=== PATIENT | male | born 1975 | race Caucasian/White ===

== ENCOUNTER 2017-08-13 02:41 | Emergency (ER) | payer BC ==
[~2017-08-13] VITALS: Ht 188 cm; Wt 111.8 kg
[2017-08-13] MEDS ORDERED: SULF1TAB49 PO (03:30)
[2017-08-13] MEDS ORDERED: sulfamethoxazole/trimethoprim DS (800/160mg) tablet PO ONE (03:30)
[2017-08-13 03:57] VITALS: BP 135/105
== END 2017-08-13 04:00 | disposition home or self-care (01) ==
LOC: ER 02:42
DX: L02.11 Cutaneous abscess of neck (principal); L03.221 Cellulitis of neck; I10 Essential (primary) hypertension; E11.9 Type 2 diabetes mellitus without complications
CPT/HCPCS: 99283

== ENCOUNTER 2019-05-14 05:19 | Emergency (ER) | payer BC ==
[~2019-05-14] VITALS: Ht 188 cm; Wt 109.0 kg
[2019-05-14] MEDS ORDERED: metoclopramide 5 mg/ml inj IV ONE (05:30)
[2019-05-14] MEDS ORDERED: LORazepam 2 mg/ml vial IV ONE (05:30)
[2019-05-14] MEDS ORDERED: normal saline 1000ML IV soln IVB ONE ×2 (05:30)
[2019-05-14] MEDS ORDERED: diphenhydrAMINE 50 mg/ml inj IV ONE (05:30)
[2019-05-14] MEDS ORDERED: morphine 4 MG/ML inj SYRINge IV ONE ×2 (05:35→07:15)
[2019-05-14] MEDS ORDERED: glycopyrrolate 0.2mg/ml inj IV ONE (05:35)
--- NOTE | 2019-05-14 05:47 | NUR ---
DR MORRIS AT BEDSIDE PERFORMING ABD ULTRASOUND
[2019-05-14 05:53] LABS: BASOPHILS # (AUTO) 0.1 X10'3 (0-0.2); BASOPHILS % (AUTO) 1.1 % (0-1); EOSINOPHILS # (AUTO) 0.1 X10'3 (0-0.9); EOSINOPHILS % (AUTO) 1.5 % (0-6); HEMATOCRIT 42.2 % (42.0-52.0); HEMOGLOBIN 14.5 g/dl (14.0-17.9); LYMPHOCYTES # (AUTO) 2.3 X10'3 (1.1-4.8); LYMPHOCYTES % (AUTO) 30.8 % (21-51); MEAN CORPUSCULAR HEMOGLOBIN 29.3 PG (27.0-31.0); MEAN CORPUSCULAR HGB CONC 34.3 g/dL (33.0-36.5); MEAN CORPUSCULAR VOLUME 85.3 FL (78-98); MONOCYTES # (AUTO) 0.8 X10'3 (0-0.9); MONOCYTES % (AUTO) 10.4 % (2-12); NEUTROPHILS # (AUTO) 4.1 X10'3 (1.8-7.7); NEUTROPHILS % (AUTO) 56.2 % (42-75); PLATELET COUNT 255 X10'3 (140-440); RED BLOOD COUNT 4.94 X10'6 (4.70-6.10); RED CELL DISTRIBUTION WIDTH 13.3 % (11.5-14.5); WHITE BLOOD COUNT 7.3 X10'3 (4.5-11.0)
[2019-05-14] MEDS ORDERED: ONDA4TAB12 PO (05:56)
[2019-05-14] MEDS ORDERED: DICY10CA88 PO (05:56)
[2019-05-14 06:12] LABS: ALANINE AMINOTRANSFERASE 34 U/L (12-78); ALBUMIN 4.4 G/DL (3.4-5.0); ALBUMIN/GLOBULIN RATIO 1.1 (1.1-1.5); ALKALINE PHOSPHATASE 48 IU/L (46-116); ANION GAP 12 (8-16); ASPARTATE AMINO TRANSFERASE 17 U/L (10-37); BILIRUBIN,TOTAL 0.6 MG/DL (0.1-1.0); BLOOD UREA NITROGEN 15 MG/DL (7-18); BUN/CREATININE RATIO 13.8 (5.4-32.0); CALCIUM 8.7 MG/DL (8.5-10.1); CHLORIDE 104 MMOL/L (99-107); CREATININE 1.09 MG/DL (0.60-1.10); GLUCOSE 152 MG/DL (70-104); LIPASE 109 U/L (73-393); POTASSIUM 3.9 MMOL/L (3.5-5.1); SODIUM 143 MMOL/L (135-145); TOTAL CARBON DIOXIDE 27.3 MMOL/L (24-32); TOTAL PROTEIN 8.5 G/DL (6.4-8.2); eGFR 73 ML/MIN
[2019-05-14] MEDS ORDERED: pantoprazole 40 MG vial IV ONE (07:15)
[2019-05-14] MEDS ORDERED: famotidine/PF 10 mg/ml inj IV ONE (07:15)
[2019-05-14] MEDS ORDERED: HYDROcodone/acetaminophen 5mg/325mg tablet PO ONE (09:00)
[2019-05-14] MEDS ORDERED: ketorolac trometh. 30mg/ml inj. IV ONE (09:00)
[2019-05-14] MEDS ORDERED: sucralfate 1gm/10ml UD suspension PO ONE (09:00)
[2019-05-14 09:03] LABS: CLARITY,URINE CLEAR (Clear); COLOR,URINE YELLOW (Yellow); GLUCOSE, URINE NEGATIVE (Neg); KETONES,URINE NEGATIVE (Neg); LEUKOCYTE ESTERASE ,URINE NEGATIVE (Neg); NITRITES, URINE NEGATIVE (Neg); OCCULT BLOOD,URINE NEGATIVE (Neg); PH,URINE 5.5 (4.8-8.0); PROTEIN,URINE 30 mg/dl (Neg)
[2019-05-14 09:04] LABS: UA COLLECTION TYPE URINAL
[2019-05-14] MEDS ORDERED: HYDR-3965 PO (09:10)
[2019-05-14 09:11] LABS: BACTERIA,URINE NONE SEEN /HPF (Neg); HYALINE CASTS 0-3 /LPF (NEGATIVE); MUCUS STRANDS MANY /LPF (Neg); RBC,URINE NONE SEEN /HPF (0-2); SQUAMOUS EPITHELIAL CELL,UR NONE SEEN /LPF (FEW); WBC,URINE 0-4 /HPF (0-4)
[2019-05-14 09:40] VITALS: BP 124/70
== END 2019-05-14 09:42 | disposition home or self-care (01) ==
LOC: ER 05:20
DX: R10.13 Epigastric pain (principal); R10.11 Right upper quadrant pain; R11.2 Nausea with vomiting, unspecified; I10 Essential (primary) hypertension; I25.2 Old myocardial infarction; E11.9 Type 2 diabetes mellitus without complications; F10.99 Alcohol use, unspecified with unspecified alcohol-induced disorder; Z79.899 Other long term (current) drug therapy; Y90.9 Presence of alcohol in blood, level not specified
CPT/HCPCS: 36415; 71045; 74176; 80053; 81001; 83690; 85025; 93005; 96361; 96374; 96375; 96376; 99284; C9113; J1200; J1885; J2060; J2270; J2765; J3490; J7030

== ENCOUNTER 2021-04-02 10:47 | Emergency (ER) | payer BC ==
[~2021-04-02] VITALS: Ht 190.5 cm; Wt 113.0 kg
[~2021-04-02 10:47] MED LIST: ONDA4TAB12 PO
[2021-04-02] MEDS ORDERED: aspirin 81mg tab.chew PO ONE (11:20)
[2021-04-02 11:53] LABS: BASOPHILS % (AUTO) 0.5 % (0-1); EOSINOPHILS # (AUTO) 0.1 X10'3 (0-0.9); EOSINOPHILS % (AUTO) 1.3 % (0-6); HEMATOCRIT 42.4 % (42.0-52.0); HEMOGLOBIN 14.4 g/dl (14.0-17.9); LYMPHOCYTES # (AUTO) 1.3 X10'3 (1.1-4.8); LYMPHOCYTES % (AUTO) 14.8 % (21-51); MEAN CORPUSCULAR HEMOGLOBIN 28.6 PG (27.0-31.0); MEAN CORPUSCULAR HGB CONC 33.9 g/dL (33.0-36.5); MEAN CORPUSCULAR VOLUME 84.5 FL (78-98); MEAN PLATELET VOLUME 9.5 FL (7.4-10.4); MONOCYTES # (AUTO) 0.8 X10'3 (0-0.9); MONOCYTES % (AUTO) 8.7 % (2-12); NEUTROPHILS # (AUTO) 6.4 X10'3 (1.8-7.7); NEUTROPHILS % (AUTO) 74.7 % (42-75); PLATELET COUNT 235 X10'3 (140-440); RED BLOOD COUNT 5.02 X10'6 (4.70-6.10); RED CELL DISTRIBUTION WIDTH 13.5 % (11.5-14.5); WHITE BLOOD COUNT 8.6 X10'3 (4.5-11.0)
[2021-04-02 12:09] LABS: ALANINE AMINOTRANSFERASE 40 U/L (12-78); ALBUMIN/GLOBULIN RATIO 1.1 (1.1-1.5); ALKALINE PHOSPHATASE 78 IU/L (46-116); ASPARTATE AMINO TRANSFERASE 16 U/L (10-37); BILIRUBIN,TOTAL 0.8 MG/DL (0.1-1.0); BLOOD UREA NITROGEN 19 MG/DL (7-18); BUN/CREATININE RATIO 15.6 (5.4-32.0); CHLORIDE 100 MMOL/L (99-107); CREATININE 1.22 MG/DL (0.60-1.10); GLUCOSE 274 MG/DL (70-104); POTASSIUM 4.1 MMOL/L (3.5-5.1); TOTAL CARBON DIOXIDE 19.4 MMOL/L (24-32); TOTAL PROTEIN 7.5 G/DL (6.4-8.2); eGFR 64 ML/MIN
[2021-04-02] MEDS ORDERED: ondansetron/PF 4mg/2ml inj IV ONE (12:10)
[2021-04-02] MEDS ORDERED: normal saline 1000ML IV soln IVB ONE (12:10)
[2021-04-02] MEDS ORDERED: nitroGLYCERIN 0.4mg/hour patch TD ONE (12:10)
[2021-04-02] MEDS ORDERED: pantoprazole 40 MG vial IV ONE (12:10)
[2021-04-02 12:16] LABS: MAGNESIUM 1.6 MG/DL (1.5-2.4)
[2021-04-02 12:17] LABS: ANION GAP 14 (8-16); SODIUM 133 MMOL/L (135-145)
[2021-04-02] MEDS ORDERED: LISI20TA28 PO (13:13)
[2021-04-02] MEDS ORDERED: METF750T46 PO (13:13)
[2021-04-02] MEDS ORDERED: SILD100T70 PO (13:13)
[2021-04-02] MEDS ORDERED: PERFLUTREN PROTEIN-A MICROSPHR (Optison) 0.22 MG/ML 3ML VIAL IV PRN (13:50)
[2021-04-02] MEDS ORDERED: magnesium 2GM in 50ml NS 50 ML IV PRN (13:50)
[2021-04-02] MEDS ORDERED: magnesium Cl slow-release 64mg tablet PO PRN (13:50)
[2021-04-02] MEDS ORDERED: morphine 2 MG/ML inj. syringe IV PRN (13:50)
[2021-04-02] MEDS ORDERED: normal saline 1000ml 1,000 ML IV SCH (13:50)
[2021-04-02] MEDS ORDERED: ondansetron/PF 4mg/2ml inj IV PRN (13:50)
[2021-04-02] MEDS ORDERED: magnesium 4gm in 100ml NS 100 ML IV PRN (13:50)
[2021-04-02] MEDS ORDERED: potassium Cl 20 mEq SR tablet PO PRN ×2 (13:50)
[2021-04-02] MEDS ORDERED: potassium Cl 40MEQ/1/2NS 520ml 520 ML IV PRN ×2 (13:50)
[2021-04-02 19:51] VITALS: BP 117/97
[2021-04-02] MEDS ORDERED: dextrose ORAL solution 15 GM/59 ML bottle PO PRN ×6 (20:00→21:00)
[2021-04-02] MEDS ORDERED: K and/or MAG REPLACEMENT MC SCH (20:00)
[2021-04-02] MEDS ORDERED: insulin Lispro (HumaLOG) vial - multi-dose SQ SCH ×3 (20:00→21:00)
[2021-04-02] MEDS ORDERED: docusate sod 100mg capsule PO SCH (20:00)
[2021-04-02] MEDS ORDERED: dextrose 50%-water 50ml dispensing syringe IV PRN ×6 (20:00→21:00)
[2021-04-02] MEDS ORDERED: MESSAGE TO PHARMACY PO ONE ×3 (20:00→20:55)
[2021-04-02] MEDS ORDERED: heparin, porcine 5000 units/ml vial SQ SCH (20:00)
[2021-04-02] MEDS ORDERED: glucagon, human recombinant 1mg kit SUBCUT PRN ×3 (20:00→21:00)
--- NOTE | 2021-04-02 20:00 | NUR ---
pt refused colace and heparin and is stating wants to leave. md parada spoke with pt regarding risks of leaving [facility].
[2021-04-02 20:27] LABS: HEMOGLOBIN A1C 8.7 % (4.5-6.2)
[2021-04-02] MEDS ORDERED: metoprolol tartrate 1mg/ml inj IV PRN ×2 (20:45→21:05)
[2021-04-02] MEDS ORDERED: regadenoson 0.4mg/5ml syringe IV ONE ×2 (20:45)
[2021-04-02] MEDS ORDERED: nitroGLYCERIN 0.4mg SUBLingual tab SL PRN ×2 (20:45→21:00)
[2021-04-02] MEDS ORDERED: aminophylline 250mg/10ml inj. IV PRN ×2 (20:45→21:05)
--- NOTE | 2021-04-02 20:58 | NUR ---
pt decided to leave [facility]. form signed
[2021-04-02] MEDS ORDERED: insulin glargine (Lantus) pen - multi-dose SQ SCH ×2 (21:00→21:15)
[2021-04-03] MEDS ORDERED: lisinopril 20mg tablet PO SCH ×2 (08:00→08:15)
== END 2021-04-02 21:06 | disposition left against medical advice (07) ==
LOC: ER 10:47 → UNDOADMOB 13:52 → ED HOLD 13:52 → UNDODISOB 20:59 → ER 21:06
DX: I20.0 Unstable angina (principal); R11.2 Nausea with vomiting, unspecified; R07.89 Other chest pain; R19.7 Diarrhea, unspecified; I10 Essential (primary) hypertension; I25.2 Old myocardial infarction; E11.9 Type 2 diabetes mellitus without complications; Z90.49 Acquired absence of other specified parts of digestive tract; Z79.899 Other long term (current) drug therapy
CPT/HCPCS: 36415; 71045; 80053; 83036; 83735; 83880; 84484; 85025; 93005; 93306; 96361; 96374; 96375; 99285; C9113; J1815; J2405; J7030; G0378

== ENCOUNTER 2021-06-14 16:04 | Inpatient (IN) | payer BC ==
[~2021-06-14] VITALS: Ht 190.5 cm; Wt 107.3 kg
[~2021-06-14 16:04] MED LIST changes: +LISI20TA28 PO; +METF750T46 PO; -ONDA4TAB12 PO; +SILD100T70 PO
[2021-06-14] MEDS ORDERED: ketorolac tromethamine 15mg/ml inj. IM ONE (19:15)
[2021-06-14] MEDS ORDERED: heparin 25,000 UNIT/250ml bag 250 ML IV SCH (20:10)
[2021-06-14] MEDS ORDERED: lisinopril 10 MG tablet PO ONE (20:10)
[2021-06-14] MEDS ORDERED: heparin 10,000 units/1 ML INJ IV PRN (20:10)
[2021-06-14] MEDS ORDERED: heparin 10,000 units/1 ML INJ IV ONE ×2 (20:10)
[2021-06-14 20:58] LABS: PARTIAL THROMBOPLASTIN TIME 26 SECONDS (22-32)
[2021-06-14] MEDS ORDERED: temazepam 15mg capsule PO PRN (21:00)
[2021-06-14] MEDS ORDERED: magnesium hydroxide 30ml (MOM) UD suspension PO PRN (21:35)
[2021-06-14] MEDS ORDERED: magnesium 4gm in 100ml NS 100 ML IV PRN (21:35)
[2021-06-14] MEDS ORDERED: acetaminophen 325mg tablet PO PRN ×2 (21:35)
[2021-06-14] MEDS ORDERED: potassium CL 10mEq/100ml bag 100 ML IV PRN (21:35)
[2021-06-14] MEDS ORDERED: mag hydrox/Alum hydrox/simeth 30ml oral suspension PO PRN (21:35)
[2021-06-14] MEDS ORDERED: ondansetron/PF 4mg/2ml inj IV PRN (21:35)
[2021-06-14] MEDS ORDERED: HYDROcodone/acetaminophen 10/325mg tab PO PRN (21:35)
[2021-06-14] MEDS ORDERED: potassium Cl 20 mEq SR tablet PO PRN ×2 (21:35)
[2021-06-14] MEDS ORDERED: morphine 2 MG/ML inj. syringe IV PRN ×2 (21:35)
[2021-06-14] MEDS ORDERED: magnesium Cl slow-release 64mg tablet PO PRN (21:35)
[2021-06-14] MEDS ORDERED: dextrose 50%-water 50ml dispensing syringe IV PRN ×2 (21:35)
[2021-06-14] MEDS ORDERED: MESSAGE TO PHARMACY PO ONE (21:35)
[2021-06-14] MEDS ORDERED: HYDROcodone/acetaminophen 5mg/325mg tablet PO PRN (21:35)
[2021-06-14] MEDS ORDERED: dextrose ORAL solution 15 GM/59 ML bottle PO PRN ×2 (21:35)
[2021-06-14] MEDS ORDERED: magnesium 2GM in 50ml NS 50 ML IV PRN (21:35)
[2021-06-14] MEDS ORDERED: glucagon, human recombinant 1mg kit SUBCUT PRN (21:35)
[2021-06-14] MEDS ORDERED: iohexol 350MG/ML 100ml bottle IV ONE (21:40)
[2021-06-14 21:49] LABS: D-DIMER 15.71 MG/L FEU (0-0.50)
[2021-06-14] MEDS: normal saline 1000ml 1,000 ML IV SCH (22:03)
[2021-06-14 22:08] LABS: BASOPHILS # (AUTO) 0.1 X10'3 (0-0.2); BASOPHILS % (AUTO) 1.5 % (0-1); EOSINOPHILS # (AUTO) 0.2 X10'3 (0-0.9); EOSINOPHILS % (AUTO) 2.7 % (0-6); HEMATOCRIT 43.4 % (42.0-52.0); HEMOGLOBIN 15.1 g/dl (14.0-17.9); LYMPHOCYTES # (AUTO) 1.5 X10'3 (1.1-4.8); LYMPHOCYTES % (AUTO) 17.9 % (21-51); MEAN CORPUSCULAR HEMOGLOBIN 28.8 PG (27.0-31.0); MEAN CORPUSCULAR HGB CONC 34.8 g/dL (33.0-36.5); MEAN CORPUSCULAR VOLUME 82.6 FL (78-98); MEAN PLATELET VOLUME 8.9 FL (7.4-10.4); MONOCYTES # (AUTO) 1.1 X10'3 (0-0.9); MONOCYTES % (AUTO) 13.7 % (2-12); NEUTROPHILS # (AUTO) 5.3 X10'3 (1.8-7.7); NEUTROPHILS % (AUTO) 64.2 % (42-75); PLATELET COUNT 369 X10'3 (140-440); RED BLOOD COUNT 5.26 X10'6 (4.70-6.10); RED CELL DISTRIBUTION WIDTH 13.7 % (11.5-14.5); WHITE BLOOD COUNT 8.2 X10'3 (4.5-11.0)
[2021-06-14 22:12] LABS: ALANINE AMINOTRANSFERASE 43 U/L (12-78); ALBUMIN/GLOBULIN RATIO 0.9 (1.1-1.5); ALKALINE PHOSPHATASE 90 IU/L (46-116); ANION GAP 12 (8-16); ASPARTATE AMINO TRANSFERASE 18 U/L (10-37); BILIRUBIN,TOTAL 0.6 MG/DL (0.1-1.0); BLOOD UREA NITROGEN 16 MG/DL (7-18); CALCIUM 9.4 MG/DL (8.5-10.1); CHLORIDE 96 MMOL/L (99-107); CREATININE 1.07 MG/DL (0.60-1.10); GLUCOSE 238 MG/DL (70-104); POTASSIUM 4.1 MMOL/L (3.5-5.1); SODIUM 133 MMOL/L (135-145); TOTAL CARBON DIOXIDE 25.3 MMOL/L (24-32); TOTAL PROTEIN 8.7 G/DL (6.4-8.2); eGFR 74 ML/MIN
[2021-06-15 03:25] LABS: BASOPHILS # (AUTO) 0.1 X10'3 (0-0.2); BASOPHILS % (AUTO) 1.4 % (0-1); EOSINOPHILS # (AUTO) 0.3 X10'3 (0-0.9); EOSINOPHILS % (AUTO) 3.8 % (0-6); HEMATOCRIT 37.4 % (42.0-52.0); HEMOGLOBIN 12.8 g/dl (14.0-17.9); LYMPHOCYTES # (AUTO) 1.8 X10'3 (1.1-4.8); LYMPHOCYTES % (AUTO) 24.5 % (21-51); MEAN CORPUSCULAR HEMOGLOBIN 28.3 PG (27.0-31.0); MEAN CORPUSCULAR HGB CONC 34.3 g/dL (33.0-36.5); MEAN CORPUSCULAR VOLUME 82.6 FL (78-98); MEAN PLATELET VOLUME 8.9 FL (7.4-10.4); MONOCYTES # (AUTO) 1.1 X10'3 (0-0.9); MONOCYTES % (AUTO) 14.7 % (2-12); NEUTROPHILS # (AUTO) 4.1 X10'3 (1.8-7.7); NEUTROPHILS % (AUTO) 55.6 % (42-75); PLATELET COUNT 330 X10'3 (140-440); RED BLOOD COUNT 4.53 X10'6 (4.70-6.10); RED CELL DISTRIBUTION WIDTH 13.7 % (11.5-14.5); WHITE BLOOD COUNT 7.5 X10'3 (4.5-11.0)
[2021-06-15 03:32] LABS: ALANINE AMINOTRANSFERASE 34 U/L (12-78); ALBUMIN 3.2 G/DL (3.4-5.0); ALBUMIN/GLOBULIN RATIO 0.8 (1.1-1.5); ALKALINE PHOSPHATASE 71 IU/L (46-116); ANION GAP 9 (8-16); ASPARTATE AMINO TRANSFERASE 18 U/L (10-37); BILIRUBIN,TOTAL 0.5 MG/DL (0.1-1.0); BLOOD UREA NITROGEN 16 MG/DL (7-18); BUN/CREATININE RATIO 16.3 (5.4-32.0); CALCIUM 8.5 MG/DL (8.5-10.1); CHLORIDE 100 MMOL/L (99-107); CREATININE 0.98 MG/DL (0.60-1.10); GLUCOSE 218 MG/DL (70-104); SODIUM 136 MMOL/L (135-145); TOTAL CARBON DIOXIDE 26.9 MMOL/L (24-32); eGFR 82 ML/MIN
[2021-06-15 03:34] LABS: MAGNESIUM 1.8 MG/DL (1.5-2.4)
[2021-06-15] MEDS ORDERED: heparin 25,000 UNIT/250ml bag 250 ML IV SCH (06:00)
[2021-06-15] MEDS ORDERED: heparin 10,000 units/1 ML INJ IV PRN (06:00)
[2021-06-15] MEDS ORDERED: K and/or MAG REPLACEMENT MC SCH (08:00)
[2021-06-15] MEDS ORDERED: docusate sod 100mg capsule PO SCH (08:00)
[2021-06-15] MEDS: normal saline 1000ml 1,000 ML IV SCH (08:18)
[2021-06-15] MEDS: insulin Lispro (HumaLOG) vial - multi-dose SQ SCH ×2 (09:38→13:56)
[2021-06-15] MEDS ORDERED: lisinopril 20mg tablet PO SCH ×2 (11:00→12:21)
--- NOTE | 2021-06-15 12:21 | NUR ---
PATIENT STATES THAT HE TAKES HIS ZESTRIL AFTER DINNER AND PREFERS TO CONTINUE THE SAME SCHEDULE, IF POSSIBLE. MED NON-ADMINISTERED AND PHARMACY WILL CHANGE SCHEDULE TO HS ADMINISTRATION.
[2021-06-15 13:58] VITALS: BP 126/82
[2021-06-15] MEDS ORDERED: apixaban 5mg tablet PO ONE (15:05)
[2021-06-15] MEDS ORDERED: APIX5TAB3 PO (15:08)
[2021-06-15] MEDS ORDERED: insulin glargine (Lantus) pen - multi-dose SQ SCH (21:00)
== END 2021-06-15 17:21 | disposition home or self-care (01) | DRG 300 ==
LOC: ER 16:04 → ED HOLD 21:36
PROVIDERS: ADMIT Internal Medicine; ATTEND Family Medicine
PROC: B32T1ZZ Computerized Tomography (CT Scan) of Left Pulmonary Artery using Low Osmolar Contrast (ICD-10-PCS; principal; 2021-06-14)
PROC: B3201ZZ Computerized Tomography (CT Scan) of Thoracic Aorta using Low Osmolar Contrast (ICD-10-PCS; 2021-06-14)
PROC: B32S1ZZ Computerized Tomography (CT Scan) of Right Pulmonary Artery using Low Osmolar Contrast (ICD-10-PCS; 2021-06-14)
DX: I82.412 Acute embolism and thrombosis of left femoral vein (principal); D68.59 Other primary thrombophilia; I70.202 Unspecified atherosclerosis of native arteries of extremities, left leg; Z20.822 Contact with and (suspected) exposure to COVID-19; I82.4Y2 Acute embolism and thrombosis of unspecified deep veins of left proximal lower extremity; E11.9 Type 2 diabetes mellitus without complications; I10 Essential (primary) hypertension; I25.2 Old myocardial infarction; Z79.899 Other long term (current) drug therapy; Z90.49 Acquired absence of other specified parts of digestive tract
CPT/HCPCS: 36415; 71275; 80053; 82948; 83036; 83605; 83735; 84484; 85025; 85379; 85610; 85730; 87040; 87081; 87635; 93005; 93970; 96365; 96372; 96376; 99285; C9803; G0378; J1644; J1815; J1885; J7030; Q9967

== ENCOUNTER 2023-06-19 13:38 | Emergency (ER) | payer OTHER ==
[~2023-06-19] VITALS: Ht 185.4 cm; Wt 108.6 kg
[~2023-06-19 13:38] MED LIST changes: +APIX5TAB3 PO; -SILD100T70 PO
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
[2023-06-19 14:25] VITALS: BP 150/87; PULSE 114; RESP 18; TEMP 98.5; O2SAT 97
== END 2023-06-19 14:43 | disposition home or self-care (01) ==
LOC: ER 13:38
DX: M54.50 Low back pain, unspecified (principal); M25.512 Pain in left shoulder; I10 Essential (primary) hypertension; I25.2 Old myocardial infarction; E11.9 Type 2 diabetes mellitus without complications; Z90.49 Acquired absence of other specified parts of digestive tract; Z79.01 Long term (current) use of anticoagulants; Z79.84 Long term (current) use of oral hypoglycemic drugs; Z79.899 Other long term (current) drug therapy
CPT/HCPCS: 73030; 99283